=== PATIENT | male | born 1955 | race Caucasian/White ===

== ENCOUNTER 2020-09-24 07:05 | Outpatient (CLI) | payer OTHER, SELFPAY ==
--- NOTE | 2020-09-24 11:45 | PFTS_ITS ---
Date of Study:09/24/20 Date of Dictation: MECHANICS: Forced vital capacity (FVC) is normal. Forced expiratory volume in one second (FEV1) is normal. FEV1/FVC is normal. FLOW VOLUME LOOP: Scooping. LUNG VOLUMES: Total lung capacity (TLC) is normal. Residual volume (RV) is increased. DIFFUSING CAPACITY FOR CARBON MONOXIDE: Normal. INTERPRETATION: The postbronchodilator spirometry is normal. The patient had a significant postbronchodilator response. The lung volumes are consistent with air trapping. This could be secondary to small airways disease. Gas exchange (DLCO) is normal. MTDD
== END 2020-09-24 07:06 | disposition home or self-care (01) ==
LOC: RT 07:10
PROVIDERS: PCP Nurse Practitioner Family; Visit Provider Nurse Practitioner Family
DX: J44.9 Chronic obstructive pulmonary disease, unspecified (principal)
CPT/HCPCS: 94060; 94726; 94729; J7611